=== PATIENT | female | born 1955 | race Caucasian/White ===

== ENCOUNTER → 2016-04-14 | Outpatient (CLI) | payer BC | END | disposition home or self-care (01) | LOC: C.PAPS 08:51 | PROVIDERS: ATTEND Obstetrics & Gynecology | DX: Z01.419 Encounter for gynecological examination (general) (routine) without abnormal findings (principal) ==

== ENCOUNTER → 2017-01-10 | Outpatient (CLI) | payer BC ==
--- NOTE | 2017-01-10 10:29 | DIAGNOSTIC IMAGING REPORT ---
LEFT FIFTH TOE 3 VIEWS CLINICAL HISTORY: Fifth toe injury. FINDINGS: 3 views of the left fifth toe are correlated with radiographs of left foot dated 12/26/2016. The skeletal structures are osteopenic. There is a nondistracted avulsion fracture at the base of the fifth proximal phalanx. Overlying soft tissue edema is noted. No additional fracture is seen. There is complete bony fusion of the fifth distal interphalangeal joint. IMPRESSION: Nondistracted avulsion fracture at the base of the fifth proximal phalanx with overlying soft tissue edema. Electronically signed by: Ayan Covington M.D. 01/10/2017 10:28 AM Dictated Date/Time: 01/10/2017 10:27 AM
== END | disposition home or self-care (01) ==
LOC: C.RDSM 16:06
PROVIDERS: ATTEND Internal Medicine
DX: S92.515A Nondisplaced fracture of proximal phalanx of left lesser toe(s), initial encounter for closed fracture (principal); X58.XXXA Exposure to other specified factors, initial encounter

== ENCOUNTER → 2017-01-11 | Outpatient (CLI) | payer BC ==
--- NOTE | 2017-01-12 07:48 | MAMMOGRAPHY REPORT ---
BILATERAL DIGITAL SCREENING MAMMOGRAM TOMOSYNTHESIS WITH CAD: 01/11/2017 CLINICAL HISTORY: Routine screening. Patient has no complaints. TECHNIQUE: Breast tomosynthesis in addition to standard 2D mammography was performed. Current study was also evaluated with a Computer Aided Detection (CAD) system. COMPARISON: Comparison is made to exams dated: 01/06/2016 mammogram, 11/14/2014 mammogram, 10/08/2013 mammogram, 10/01/2012 mammogram, 09/30/2011 mammogram, and 03/29/2011 mammogram - [facility]. BREAST COMPOSITION: The tissue of both breasts is heterogeneously dense, which may obscure small mas ses. FINDINGS: No suspicious masses, calcifications, or areas of architectural distortion are noted in ei ther breast. There has been no significant interval change compared to prior exams. Circumscribed be nign-appearing right breast masses are not significantly changed. Bilateral benign-appearing calcifi cations are also unchanged. IMPRESSION: ACR BI-RADS CATEGORY 2: BENIGN There is no mammographic evidence of malignancy. A 1 year screening mammogram is recommended. The pa tient will receive written notification of the results. Approximately 10% of breast cancers are not detected with mammography. A negative mammographic report should not delay biopsy if a clinically suggestive mass is present. Yolanda Maya M.D. ah/:01/11/2017 16:46:56 [employer]: Taylor CARRILLO(R)(M), [facility] letter sent: Normal 1/2 BI-RADS Code: ACR BI-RADS Category 2: Benign
== END | disposition home or self-care (01) ==
LOC: C.MAMM 16:22
PROVIDERS: ATTEND Family Medicine
DX: Z12.31 Encounter for screening mammogram for malignant neoplasm of breast (principal)